=== PATIENT | female | born 1995 | race Two or more races ===

== ENCOUNTER 2020-04-13 18:55 | Outpatient (CLI) | payer OTHER ==
[2020-04-13] MEDS ORDERED: PRENATAL TABLE1 EAC1 PO (19:58)
== END 2020-04-14 13:45 | disposition home or self-care (01) ==
LOC: EDBD 18:55 → OBS/DEL 18:55
PROVIDERS: ATTEND Obstetrics & Gynecology
DX: O36.8330 Maternal care for abnormalities of the fetal heart rate or rhythm, third trimester, not applicable or unspecified (principal)

== ENCOUNTER 2020-04-21 09:20 | Inpatient (IN) | payer OTHER ==
[~2020-04-21] VITALS: Ht 167.6 cm; Wt 82.1 kg
[~2020-04-21 09:20] MED LIST: PRENATAL TABLE1 EAC1 PO
== END 2020-04-23 13:48 | disposition home or self-care (01) | DRG 807 ==
LOC: LDR 09:20 → OB/GYN 09:20
PROVIDERS: ADMIT Obstetrics & Gynecology; ATTEND Obstetrics & Gynecology
PROC: 10E0XZZ Delivery of Products of Conception, External Approach (ICD-10-PCS; principal; 2020-04-21)
PROC: 4A1HXFZ Monitoring of Products of Conception, Cardiac Rhythm, External Approach (ICD-10-PCS; 2020-04-21)
PROC: 3E033VJ Introduction of Other Hormone into Peripheral Vein, Percutaneous Approach (ICD-10-PCS; 2020-04-21)
DX: O80 Encounter for full-term uncomplicated delivery (principal); Z37.0 Single live birth; Z20.828 Contact with and (suspected) exposure to other viral communicable diseases; Z3A.39 39 weeks gestation of pregnancy